=== PATIENT | male | born 1970 | race Caucasian/White ===

== ENCOUNTER 2020-03-28 12:13 | Outpatient (REF) | payer OTHER, SELFPAY | END 2020-03-28 12:14 | disposition home or self-care (01) | LOC: HO.WFDLDS 12:13 | PROVIDERS: Visit Provider Internal Medicine | DX: Z20.828 Contact with and (suspected) exposure to other viral communicable diseases (principal) | CPT/HCPCS: C9803; U0003 ==

== ENCOUNTER 2020-05-22 10:35 | Outpatient (REF) | payer OTHER, SELFPAY | END 2020-05-22 10:36 | disposition home or self-care (01) | LOC: HO.WFDLDS 10:35 | PROVIDERS: Visit Provider Internal Medicine | DX: Z20.828 Contact with and (suspected) exposure to other viral communicable diseases (principal) | CPT/HCPCS: 36415; C9803; U0003 ==